=== PATIENT | female | born 1980 | race Caucasian/White ===

== ENCOUNTER 2018-06-29 13:22 | Emergency (ER) | payer OTHER, MEDICAID, SELFPAY ==
[2018-06-29 13:27] VITALS: BP 119/71; PULSE 82; RESP 20; TEMP 36.8; O2SAT 100
--- NOTE | 2018-06-29 15:14 | PC.NURSE ---
Patient states she is beginning to experience withdrawal symptoms. Pt normally takes methadone daily at a clinic in [place]. Her last dose of methadone was 06/27/18. Today pt feels anxious, has pain, nauseated, and chills. Pt states she called her clinic and they told her to come to the ED for prescription. Pt states she know the ED cannot give her Methadone but states she thinks percocet will help her symptoms and hold her over until she gets back to [place] on Wednesday
--- NOTE | 2018-06-29 15:37 | ED.RECABL ---
HPI - Recheck/Abnormal Lab/Rx <Jessica Cooper PA-C - Last Filed: 06/29/18 21:43> General Chief Complaint: Recheck/Abnormal Lab/Rx Stated Complaint: stated needs methadone Time Seen by Provider: 06/29/18 15:37 Source: patient Mode of arrival: ambulatory Limitations: no limitations History of Present Illness HPI narrative: this 37-year-old female was sent from her methadone clinic in [place] to request an emergency supply for maintenance treatment. She she states that she was supposed to go back to [place] 2 days ago and be seen for refill, however her is coming to get she and her son and is now not able to arrive until Wednesday. She states that she has been on methadone for 2 months, previously on heroin. She states that she ran out 2 days ago. She is also on clonidine and lithium for bipolar disorder and maintenance. She states that she has some ongoing aches and diarrhea, but states she has had her lithium levels checked in felt not related to this. She is not having any new symptoms today. She states that the clinic nurse told her to come to the ED to get methadone or some other medication to help avoid withdrawals. PMH/SH: Bipolar Thyroid Ca s/p thyroidectomy Heroin abuse (in remission) S/p C section SH: No tob, denies ETOH Related Data Home Medications Medication Instructions Recorded Confirmed clonazepam [Klonopin] 2 mg PO BID 06/29/18 06/29/18 levothyroxine 100 mcg PO DAILY 06/29/18 06/29/18 lithium carbonate 450 mg PO BID 06/29/18 06/29/18 methadone 90 mg PO DAILY 06/29/18 06/29/18 Allergies Allergy/AdvReac Type Severity Reaction Status Date / Time clonidine Allergy Verified 06/29/18 13:29 tizanidine [From Zanaflex] Allergy Verified 06/29/18 13:29 Review of Systems <Jessica Cooper PA-C - Last Filed: 06/29/18 21:43> Review of Systems ROS Unobtainable: All systems reviewed & are unremarkable except as noted in HPI and below PFSH <Jessica Cooper PA-C - Last Filed: 06/29/18 21:43> Social History Smoking Status: Never smoker Social History Smoking Status: Never smoker Exam <Jessica Cooper PA-C - Last Filed: 06/29/18 21:43> Narrative Exam Narrative: GENERAL: Patient sitting comfortably, in no distress (entirety of visit spent in discussion/counseling) Initial Vital Signs Initial Vital Signs: Vital Signs Temperature 98.2 F 06/29/18 13:27 Pulse Rate 82 06/29/18 13:27 Respiratory Rate 20 06/29/18 13:27 Blood Pressure 119/71 06/29/18 13:27 Pulse Oximetry 100 06/29/18 13:27 <Derrick Sands DO - Last Filed: 06/30/18 07:04> Initial Vital Signs Initial Vital Signs: Vital Signs Temperature 98.2 F 06/29/18 13:27 Pulse Rate 82 06/29/18 13:27 Respiratory Rate 20 06/29/18 13:27 Blood Pressure 119/71 06/29/18 13:27 Pulse Oximetry 100 06/29/18 13:27 Course <Jessica Cooper PA-C - Last Filed: 06/29/18 21:43> Vital Signs - 8 hr 06/29/18 16:10 Pulse Rate 77 Respiratory Rate 16 Blood Pressure [Right Arm] 109/85 Pulse Oximetry 99 <DO Ajay Coyne Last Filed: 06/30/18 07:04> Vital Signs - 8 hr 06/29/18 16:10 Pulse Rate 77 Respiratory Rate 16 Blood Pressure [Right Arm] 109/85 Pulse Oximetry 99 Discharge Plan Departure Patient Disposition: Home Clinical Impression: Encounter for medication counseling Discharge Date/Time: 06/29/18 16:18 Interventions: ED Discharge Assessment Last Done: 06/29/18 16:14 Instructions: DI for Drug or Alcohol Withdrawal Activity Restrictions/Additional Instructions: I have given you information for drug and alcohol withdrawal so you can monitor, however methadone is very long-acting and tends not to cause severe withdrawal effects like other opioids can. Please call your methadone clinic 1st thing in the morning and let them know that we cannot prescribe this or other opioid medications for maintenance therapy from the emergency room, nor can most non pain specialty providers when this is for maintenance therapy rather than acute pain. I spoke with our pharmacist here to verify this. However, in [facility], your doctor from the methadone clinic can call your pharmacy and call in an emergency supply for you , then can send the hard copy of the prescription within a few days. This is legal with controlled prescriptions in [facility] (I also confirmed with the pharmacist). Please have a pharmacy number for your clinic when you call in the morning. Prescriptions: No Action lithium carbonate 300 mg Tablet Extended Release 450 mg PO BID RF: 0 methadone 40 mg Tablet,Soluble 90 mg PO DAILY RF: 0 clonazepam [Klonopin] 2 mg Tablet 2 mg PO BID RF: 0 levothyroxine 100 mcg Capsule 100 mcg PO DAILY RF: 0 Referrals: [facility], Methadone Clinic [Other] <Derrick Sands DO - Last Filed: 06/30/18 07:04> [facility] ED Attending Almita Attestation: I was available for consultation during this patient's emergency department encounter
[2018-06-29 16:10] VITALS: BP 109/85; PULSE 77; RESP 16; O2SAT 99
== END 2018-06-29 16:18 | disposition home or self-care (01) ==
PROVIDERS: Emergency Provider Internal Medicine
DX: Z71.89 Other specified counseling (principal)
CPT/HCPCS: 99282

== ENCOUNTER 2018-08-18 17:18 | Emergency (ER) | payer OTHER, MEDICAID, SELFPAY ==
[2018-08-18 17:28] VITALS: BP 99/66; PULSE 78; RESP 16; O2SAT 98; BMI 22.4
[2018-08-18 17:49] LABS: Pregnancy Test Urine Negative (Negative)
--- NOTE | 2018-08-18 18:23 | ED.ABDPAIN ---
HPI - Abdominal Pain General Chief Complaint: Abdominal Pain Stated Complaint: ABD PAIN Time Seen by Provider: 08/18/18 18:23 Source: patient Mode of arrival: ambulatory Limitations: no limitations History of Present Illness HPI narrative: 37-year-old female here for evaluation of right lower quadrant/right adnexa pain. States it has been worsening for the past couple days. No change with urination or bowel movement. Has had some nausea but no vomiting. has not tried anything for symptoms prior to arrival Related Data Home Medications Medication Instructions Recorded Confirmed clonazepam [Klonopin] 2 mg PO BID 06/29/18 06/29/18 levothyroxine 100 mcg PO DAILY 06/29/18 06/29/18 lithium carbonate 450 mg PO BID 06/29/18 06/29/18 methadone 90 mg PO DAILY 06/29/18 06/29/18 Allergies Allergy/AdvReac Type Severity Reaction Status Date / Time clonidine Allergy Verified 08/18/18 17:28 tizanidine [From Zanaflex] Allergy Verified 08/18/18 17:28 Review of Systems Constitutional Denies headache(s) ENT Ears, Nose, Mouth, and Throat: Denies headache(s) Cardiovascular Denies chest pain and Denies dyspnea Respiratory Denies dyspnea Gastrointestinal Gastrointestinal: Reports abdominal pain, Denies change in stool character, Reports nausea and Denies vomiting Genitourinary Denies dysuria and Denies vaginal discharge Musculoskeletal Denies myalgias and Denies arthralgias Integumentary/Breasts Denies rash Neurologic Denies headache(s) Hematologic/Lymphatic Denies easy bleeding and Denies easy bruising Allergic/Immunologic Denies urticaria [facility] Medical History Hypothyroid (Acute) Social History Smoking Status: Never smoker Social History Smoking Status: Never smoker Exam Initial Vital Signs Initial Vital Signs: Vital Signs Pulse Rate 78 08/18/18 17:28 Respiratory Rate 16 08/18/18 17:28 Blood Pressure 99/66 08/18/18 17:28 Pulse Oximetry 98 08/18/18 17:28 Const General: cooperative, comfortable, well developed, well groomed and No acute distress Orientation: alert, awake and oriented x3 HENMT Head: normal to inspection and normocephalic Resp Effort & Inspection: normal respiratory effort Auscultation: clear to auscultation bilaterally Cardio Rate: regular rate Rhythm: regular rhythm GI Inspection: non-distended Palpation: soft, No firm and tender (Right lower quadrant/right adnexa) Back/Spine/Pelvis Back: No CVA tenderness Skin Lesions: no lesions Rashes: no rashes Neuro General: alert, awake and oriented x3 Cognition: normal cognition Speech: speech normal Extrem General: normal to inspection and capillary refill normal Course Orders Ordered: ED Orders 08/18/18 17:34 Test Urine Stat Urine Microscopic Stat 08/18/18 18:32 CT abdomen pelvis w con Stat 08/18/18 18:38 Complete Blood Count AUTO DIFF Stat Comprehensive Metabolic Panel Stat Lipase Stat 08/18/18 20:21 US pelvic complete Stat Discontinued Medications Sodium Chloride (Normal Saline 0.9%) 1,000 mls @ 150 mls/hr IV CONT MARC Last Admin: 08/18/18 18:43 Dose: Not Given Sodium Chloride (Normal Saline 0.9%) 1,000 mls @ 1,000 mls/hr IV BOLUS ONE Stop: 08/18/18 19:30 Last Infusion: 08/18/18 20:19 Dose: 0 mls/hr Admin: 08/18/18 18:48 Dose: 1,000 mls/hr Morphine Sulfate (Morphine) 4 mg IV NOW ONE Stop: 08/18/18 18:32 Last Admin: 08/18/18 18:48 Dose: 4 mg Morphine Sulfate (Morphine) 4 mg IV NOW ONE Stop: 08/18/18 20:22 Last Admin: 08/18/18 20:29 Dose: 4 mg Ondansetron HCl (Zofran) 4 mg IV NOW ONE Stop: 08/18/18 18:32 Last Admin: 08/18/18 18:48 Dose: 4 mg Vital Signs - 8 hr 08/18/18 17:28 08/18/18 19:15 08/18/18 21:17 Pulse Rate 78 74 65 Respiratory Rate 16 12 16 Blood Pressure 99/66 Blood Pressure [Right Arm] 107/68 111/78 Pulse Oximetry 98 98 96 MDM - Abdominal Pain Lab Data Attestation: I reviewed the patient's lab results. Result diagrams: 08/18/18 18:38 08/18/18 18:38 Lab Results 08/18/18 08/18/18 08/18/18 Range/Units 17:34 17:34 18:38 WBC 8.6 (4.5-11.0) X10^3/uL RBC 4.02 (4.0-5.2) X10^6/uL Hgb 11.7 L (12.0-16.0) g/dL Hct 36.2 (36-46) % MCV 89.9 (80-100) fL MCH 29.0 (26-34) PG MCHC 32.2 (30-36) % RDW 14.5 (11.6-14.8) % Plt Count 288 (150-400) X10^3/uL Neut % (Auto) 59.3 (50-75) % Lymph % (Auto) 31.9 (25-40) % [place] % (Auto) 4.5 (3-14) % Eos % (Auto) 3.9 (2-4) % Baso % (Auto) 0.4 (0-2) % Neut # (Auto) 5100 (4031-4099) /uL Lymph # (Auto) 2700 (5755-2411) /uL [place] # (Auto) 400 (0-900) /uL Eos # (Auto) 300 (0-450) /uL Baso # (Auto) 0 (0-100) /uL Sodium (137-145) mmol/L Potassium (3.4-5.1) mmol/L Chloride (98-107) mmol/L Carbon Dioxide (22-32) mmol/L BUN (7-17) mg/dL Creatinine (0.52-1.04) mg/dL Estimated GFR (>60) mL/min BUN/Creatinine Ratio (6-22) Glucose (70-100) mg/dL Calcium (8.4-10.2) mg/dL Total Bilirubin (0.2-1.3) mg/dL AST (14-36) IU/L ALT (9-52) IU/L Alkaline Phosphatase (38-126) U/L Total Protein (6.3-8.2) g/dL Albumin (3.5-5.0) g/dL Globulin (1.7-4.1) g/dL Albumin/Globulin Ratio (1.0-2.8) Lipase (23-300) U/L Urine RBC None seen (0-5/HPF) Urine WBC 1-5/hpf (0-5/HPF) Ur Squamous Epith Cells 1-5 /hpf (0-5/HPF) Calcium Oxalate Crystal Occasional H Urine Bacteria Few (2-10) H (None) Ur Culture Indicated? Cult not indicated Urine Test Negative (Negative) 08/18/18 Range/Units 18:38 WBC (4.5-11.0) X10^3/uL RBC (4.0-5.2) X10^6/uL Hgb (12.0-16.0) g/dL Hct (36-46) % MCV (80-100) fL MCH (26-34) PG MCHC (30-36) % RDW (11.6-14.8) % Plt Count (150-400) X10^3/uL Neut % (Auto) (50-75) % Lymph % (Auto) (25-40) % [place] % (Auto) (3-14) % Eos % (Auto) (2-4) % Baso % (Auto) (0-2) % Neut # (Auto) (3716-8881) /uL Lymph # (Auto) (8650-0279) /uL Carolina # (Auto) (0-900) /uL Eos # (Auto) (0-450) /uL Baso # (Auto) (0-100) /uL Sodium 140 (137-145) mmol/L Potassium 4.0 (3.4-5.1) mmol/L Chloride 99 (98-107) mmol/L Carbon Dioxide 31 (22-32) mmol/L BUN 12 (7-17) mg/dL Creatinine 0.70 (0.52-1.04) mg/dL Estimated GFR > 60.0 (>60) mL/min BUN/Creatinine Ratio 17.1 (6-22) Glucose 95 (70-100) mg/dL Calcium 9.6 (8.4-10.2) mg/dL Total Bilirubin 0.3 (0.2-1.3) mg/dL AST 29 (14-36) IU/L ALT 67 H (9-52) IU/L Alkaline Phosphatase 87 (38-126) U/L Total Protein 8.2 (6.3-8.2) g/dL Albumin 4.7 (3.5-5.0) g/dL Globulin 3.5 (1.7-4.1) g/dL Albumin/Globulin Ratio 1.3 (1.0-2.8) Lipase 47 (23-300) U/L Urine RBC (0-5/HPF) Urine WBC (0-5/HPF) Ur Squamous Epith Cells (0-5/HPF) Calcium Oxalate Crystal Urine Bacteria (None) Ur Culture Indicated? Urine Test (Negative) Point of care testing: Urine Dip Bedside Urine Glucose Negative Bedside Urine Bilirubin + 1 Bedside Urine Ketone - Negative Urine Specific [place] 1.030 Bedside Urine Occult Blood - Negative Bedside Urine pH 5.5 Bedside Urine Protein +/- 15 Bedside Urine Urobilinogen +/- 1mg Bedside Urine Nitrite - Negative Bedside Urine Leukocytes - Negative Esterase Imaging Data CT scan - abdomen: Radiologist's impression: CT Scan Report Signed Patient: Elana Herring WMR#: [id number] : 1980Acct:[id number] Age/Sex: 37 / FDate of Service: 08/18/18 Loc: ED Accession Number: [id number] Procedure: CT abdomen pelvis w con Ordering Provider: Derrick Sands D.O. PROCEDURE: CT ABDOMEN PELVIS W CON INDICATIONS: Right lower quadrant abdominal pain TECHNIQUE: After the administration of intravenous contrast, 5 mm thick sections acquired from the diaphragm to the symphysis. 5 mm coronal and sagittal reformats were acquired. For radiation dose reduction, the following was used: automated exposure control, adjustment of mA and/or kV according to patient size. COMPARISON: None. FINDINGS: Image quality: Excellent. ABDOMEN: Lung bases: Lung bases demonstrate mild respiratory motion but also minimal alveolar opacity centrally and medially in both lower lobes and right middle lobe.. Solid organs: Liver is enlarged consistent with a Jeremy's lobe morphology. Gallbladder is decompressed around a stone and demonstrates slight wall thickening.. Biliary system is non dilated. Pancreas enhances normally. Spleen is normal in size and enhancement. No adrenal nodules. Kidneys demonstrate normal size and enhancement, without hydronephrosis. Peritoneum and bowel: Mildly increased quantity of solid stool in the proximal colon. Decompressed distal colon. Normal small bowel loops and stomach. The appendix is retrocecal, horizontally oriented, and the visible portion is normal. There is a trace amount of fluid anteriorly in the right lower quadrant, nonspecific. Nodes and vessels: No retroperitoneal or mesenteric adenopathy by size criteria. Aorta and inferior vena cava are normal in size. Miscellaneous: No ventral hernias. PELVIS: Genitourinary: Urinary bladder demonstrates circumferential wall thickening, but only partial distention. The ovaries are not well seen. The uterus appears normal. Miscellaneous: No inguinal hernias or adenopathy. Bones: No suspicious bony lesions. No vertebral body compression fractures. Bilateral L5 pars defects and trace L5 on S1 anterolisthesis. IMPRESSION: 1. Visible portions the appendix appear normal. 2. Nonspecific trace amount of free fluid in the right lower quadrant anteriorly. 3. Nonvisualization of the ovaries. 4. Cholelithiasis in a decompressed gallbladder. Dictated by: Ely Garner M.D. on 08/18/2018 at 19:49 Approved by: Ely Garner M.D. on 08/18/2018 at 19:56 US - abdomen: Radiologist's impression: [place] [address] Ultrasound Report Signed Patient: Elana Herring WMR#: [id number] : 1980Acct:[id number] Age/Sex: 37 / FDate of Service: 08/18/18 Loc: ED Accession Number: [id number] Procedure: US pelvic complete Ordering Provider: Derrick Sands D.O. PROCEDURE: US PELVIC COMPLETE INDICATIONS: RIGHT LOWER QUADRANT AND ABDOMINAL PAIN, ?OVARY PATHOLOGY TECHNIQUE: Real-time scanning was performed of the pelvic organs, with image documentation. Additional endovaginal scanning was necessary due to incomplete visualization of the adnexal and endometrial structures by transabdominal scanning. COMPARISON: None. FINDINGS: Transabdominal scanning: Limited scanning through the kidneys shows no hydronephrosis. No pathologic free abdominal or pelvic fluid. The anteverted uterus demonstrates normal contours. The echotexture is heterogeneous. Endovaginal scanning: Uterus: Uterus is normal in size at 8.8 x 4.2 x 6.3 cm. The endometrium measures less than 2 mm in combined thickness. Occasional punctate echogenic foci within the myometrium diffusely and in a linear fashion transversely along anterior lower uterine segmen. Normal vascularity. Ovaries: The right ovary measures 4.4 x 2.7 x 1.7 cm and contains multiple subcentimeter follicles. The left ovary measures 4.0 x 2.3 x 2.8 cm and demonstrates a dominant follicle measuring 2.1 cm. A small amount of simple cul-de-sac fluid is visible. IMPRESSION: 1. Normal uterus with calcified scar. 2. Normal appearance to both ovaries and likely physiologic amount of cul-de-sac fluid. Dictated by: Ely Garner M.D. on 08/18/2018 at 21:46 Approved by: Ely Garner M.D. on 08/18/2018 at 21:49 [facility] Narrative Medical decision making narrative: Her CT scan and ultrasound were negative for acute pathology. Labs are unremarkable. No indication for antibiotics. No indication for emergent surgical referral. Unsure the exact etiology of her symptoms but does not appear to be an emergent condition. I discussed all this with the patient. She is given return precautions and follow-up instructions. She expressed understanding and agreement with plan. Discharge Plan Departure Patient Disposition: Home Clinical Impression: Abdominal pain Qualifiers: Abdominal location: right lower quadrant Qualified Code(s): R10.31 - Right lower quadrant pain Discharge Date/Time: 08/18/18 22:20 Interventions: ED Discharge Assessment Last Done: 08/18/18 22:37 Instructions: DI for Abdominal Pain-Adult Activity Restrictions/Additional Instructions: Call your primary care doctor for follow-up. Return to the emergency department for any new or worsening symptoms Prescriptions: No Action lithium carbonate 300 mg Tablet Extended Release 450 mg PO BID RF: 0 methadone 40 mg Tablet,Soluble 90 mg PO DAILY RF: 0 clonazepam [Klonopin] 2 mg Tablet 2 mg PO BID RF: 0 levothyroxine 100 mcg Capsule 100 mcg PO DAILY RF: 0
--- NOTE | 2018-08-18 18:32 | DI.CT.S_ITS ---
PROCEDURE: CT ABDOMEN PELVIS W CON INDICATIONS: Right lower quadrant abdominal pain TECHNIQUE: After the administration of intravenous contrast, 5 mm thick sections acquired from the diaphragm to the symphysis. 5 mm coronal and sagittal reformats were acquired. For radiation dose reduction, the following was used: automated exposure control, adjustment of mA and/or kV according to patient size. COMPARISON: None. FINDINGS: Image quality: Excellent. ABDOMEN: Lung bases: Lung bases demonstrate mild respiratory motion but also minimal alveolar opacity centrally and medially in both lower lobes and right middle lobe.. Solid organs: Liver is enlarged consistent with a Jeremy's lobe morphology. Gallbladder is decompressed around a stone and demonstrates slight wall thickening.. Biliary system is non dilated. Pancreas enhances normally. Spleen is normal in size and enhancement. No adrenal nodules. Kidneys demonstrate normal size and enhancement, without hydronephrosis. Peritoneum and bowel: Mildly increased quantity of solid stool in the proximal colon. Decompressed distal colon. Normal small bowel loops and stomach. The appendix is retrocecal, horizontally oriented, and the visible portion is normal. There is a trace amount of fluid anteriorly in the right lower quadrant, nonspecific. Nodes and vessels: No retroperitoneal or mesenteric adenopathy by size criteria. Aorta and inferior vena cava are normal in size. Miscellaneous: No ventral hernias. PELVIS: Genitourinary: Urinary bladder demonstrates circumferential wall thickening, but only partial distention. The ovaries are not well seen. The uterus appears normal. Miscellaneous: No inguinal hernias or adenopathy. Bones: No suspicious bony lesions. No vertebral body compression fractures. Bilateral L5 pars defects and trace L5 on S1 anterolisthesis. IMPRESSION: 1. Visible portions the appendix appear normal. 2. Nonspecific trace amount of free fluid in the right lower quadrant anteriorly. 3. Nonvisualization of the ovaries. 4. Cholelithiasis in a decompressed gallbladder. Dictated by: Ely Garner M.D. on 08/18/2018 at 19:49 Approved by: Ely Garner M.D. on 08/18/2018 at 19:56
[2018-08-18] MEDS: SODIUM CHLORIDE 0.9% 1,000 ML 1000 ML IV (18:48)
[2018-08-18] MEDS: MORPHINE 4 MG/ML INJ IV ×2 (18:48→20:29)
[2018-08-18] MEDS: ONDANSETRON 4 MG/2 ML INJ IV (18:48)
[2018-08-18 18:56] LABS: Add Manual Diff / Slide Review NO; Basophils Absolute Auto 0 /uL (0-100); Basophils Percent Auto 0.4 % (0-2); Eosinophils Absolute Auto 300 /uL (0-450); Eosinophils Percent Auto 3.9 % (2-4); Hematocrit 36.2 % (36-46); Hemoglobin 11.7 g/dL (12.0-16.0); Lymphocytes Absolute Auto 2700 /uL (1100-4500); Lymphocytes Percent Auto 31.9 % (25-40); Mean Corpuscular HGB Conc 32.2 % (30-36); Mean Corpuscular Volume 89.9 fL (80-100); Monocytes Absolute Auto 400 /uL (0-900); Monocytes Percent Auto 4.5 % (3-14); Neutrophils Absolute Auto 5100 /uL (1500-7000); Neutrophils Percent Auto 59.3 % (50-75); Platelet Count 288 X10^3/uL (150-400); Red Blood Cell Count 4.02 X10^6/uL (4.0-5.2); Red Cell Distribution Width 14.5 % (11.6-14.8); White Blood Cell Count 8.6 X10^3/uL (4.5-11.0)
[2018-08-18 18:59] LABS: Alanine Aminotransferase 67 IU/L (9-52); Albumin 4.7 g/dL (3.5-5.0); Albumin Globulin Ratio 1.3 (1.0-2.8); Alkaline Phosphatase 87 U/L (38-126); Aspartate Aminotransferase 29 IU/L (14-36); BUN Creatinine Ratio 17.1 (6-22); Bilirubin Total 0.3 mg/dL (0.2-1.3); Blood Urea Nitrogen 12 mg/dL (7-17); Calcium 9.6 mg/dL (8.4-10.2); Carbon Dioxide 31 mmol/L (22-32); Chloride 99 mmol/L (98-107); Estimated Glomerular Filt Rate > 60.0 mL/min (>60); Globulin 3.5 g/dL (1.7-4.1); Glucose 95 mg/dL (70-100); HEMOLYSIS < 15 (0-50); Lipase 47 U/L (23-300); Sodium 140 mmol/L (137-145); Total Protein 8.2 g/dL (6.3-8.2)
[2018-08-18 19:15] VITALS: BP 107/68; PULSE 74; RESP 12; O2SAT 98
[2018-08-18 19:21] LABS: RBC Urine None Seen (0-5/HPF)
[2018-08-18 19:34] LABS: Squamous Epithelial Cell Urine 1-5 /HPF (0-5/HPF); WBC Urine 1-5/HPF (0-5/HPF)
[2018-08-18 19:35] LABS: Bacteria Urine Few (2-10); Calcium Oxalate Crystals Urine Occasional; Culture Indicated Urine Cult Not Indicated
--- NOTE | 2018-08-18 20:21 | DI.US.S_ITS ---
PROCEDURE: US PELVIC COMPLETE INDICATIONS: RIGHT LOWER QUADRANT AND ABDOMINAL PAIN, ?OVARY PATHOLOGY TECHNIQUE: Real-time scanning was performed of the pelvic organs, with image documentation. Additional endovaginal scanning was necessary due to incomplete visualization of the adnexal and endometrial structures by transabdominal scanning. COMPARISON: None. FINDINGS: Transabdominal scanning: Limited scanning through the kidneys shows no hydronephrosis. No pathologic free abdominal or pelvic fluid. The anteverted uterus demonstrates normal contours. The echotexture is heterogeneous. Endovaginal scanning: Uterus: Uterus is normal in size at 8.8 x 4.2 x 6.3 cm. The endometrium measures less than 2 mm in combined thickness. Occasional punctate echogenic foci within the myometrium diffusely and in a linear fashion transversely along anterior lower uterine segmen. Normal vascularity. Ovaries: The right ovary measures 4.4 x 2.7 x 1.7 cm and contains multiple subcentimeter follicles. The left ovary measures 4.0 x 2.3 x 2.8 cm and demonstrates a dominant follicle measuring 2.1 cm. A small amount of simple cul-de-sac fluid is visible. IMPRESSION: 1. Normal uterus with calcified scar. 2. Normal appearance to both ovaries and likely physiologic amount of cul-de-sac fluid. Dictated by: Ely Garner M.D. on 08/18/2018 at 21:46 Approved by: Ely Garner M.D. on 08/18/2018 at 21:49
[2018-08-18 21:17] VITALS: BP 111/78; PULSE 65; RESP 16; O2SAT 96
== END 2018-08-18 22:20 | disposition home or self-care (01) ==
PROVIDERS: Emergency Medicine; Emergency Provider Emergency Medicine
DX: R10.31 Right lower quadrant pain (principal); R11.0 Nausea; R10.2 Pelvic and perineal pain
CPT/HCPCS: 36591; 74177; 76830; 76856; 80053; 81003; 81015; 81025; 83690; 85025; 96361; 96374; 96375; 96376; 99283; 99284; J2270; J2405; Q9967

== ENCOUNTER 2021-09-25 16:24 | Emergency (ER) | payer MEDICAID, SELFPAY ==
[2021-09-25 16:38] VITALS: BP 121/67; PULSE 62; RESP 14; TEMP 36.2; O2SAT 100; BMI 24.3
--- NOTE | 2021-09-25 19:29 | PC.NURSE ---
Called for pt in waiting room with not response at 1903
== END 2021-09-25 19:29 | disposition left against medical advice (07) ==
PROVIDERS: Emergency Provider Emergency Medicine
CPT/HCPCS: 99281

== ENCOUNTER 2022-02-05 11:14 | Emergency (ER) | payer OTHER, MEDICAID, SELFPAY ==
[2022-02-05 11:39] VITALS: BP 113/77; PULSE 59; RESP 14; TEMP 36.2; O2SAT 100; BMI 22.9
--- NOTE | 2022-02-05 13:02 | ED.WEAKNESS ---
HPI - Weakness <Alisha Workman PA-C - Last Filed: 02/05/22 17:21> General Chief complaint: Weakness Stated complaint: severe dehydration sent by [facility] Time Seen by Provider: 02/05/22 12:10 Source: patient Mode of arrival: Wheelchair History of Present Illness HPI Narrative: The patient is 41 years old unfortunate female with past medical history significant for longstanding (at least 15 years) drug addiction, hypothyroidism status post total thyroidectomy due to history of thyroid cancer, ongoing lumbar pain, tingling numbness in the right lower extremity has been maintained on methadone program. She has been frequently missing her doses, is evident from her recent visit to [facility] Emergency Department discharge note, and as a result, experiencing bouts of nausea vomiting weakness. She received just yesterday fluids at the ED, and supposed to be seen today at the [facility], and get her doses of methadone adjusted. She could not keep that visit due to ongoing issues with weakness nausea and vomiting. The fact that she resides with her mother at remote location, and does not have her transportation does not help. matters. Patient admitted that she feels weak and dizzy. She barely can get up. She also complains of lower extremity weakness, and been a drug addict for long time, she knows these are symptoms of her dehydration. She also could not keep down much since last night. She mentions she did feel better after hydration and antiemetics given to her and [facility] ED. she was provided antinausea medication, and tried to use it, however throw up regardless. She specifically denies fever chills. Related Data Home Medications Medication Instructions Recorded Confirmed clonazepam 2 mg tablet (Klonopin) 2 mg PO BID 06/29/18 06/29/18 levothyroxine 100 mcg capsule 100 mcg PO DAILY 06/29/18 06/29/18 lithium carbonate 300 mg 450 mg PO BID 06/29/18 06/29/18 tablet,extended release methadone 40 mg soluble tablet 90 mg PO DAILY 06/29/18 06/29/18 Allergies Allergy/AdvReac Type Severity Reaction Status Date / Time clonidine Allergy Verified 02/05/22 11:41 codeine Allergy Verified 02/05/22 11:41 ibuprofen Allergy Verified 02/05/22 11:41 tizanidine [From Zanaflex] Allergy Verified 02/05/22 11:41 Review of Systems <Alisha Workman PA-C - Last Filed: 02/05/22 17:21> Review of Systems Narrative: GENERAL: Denies chills, admits to fatigue, malaise, fever, sweats. HEENT: Denies sinus pain, ear pain, sore throat, difficulty swallowing, dizziness. RESPIRATORY: Denies dyspnea, cough, wheezing, hemoptysis, sputum. CARDIOVASCULAR: Denies chest pain, palpitations, orthopnea, edema, GASTROINTESTINAL: Denies nausea, vomiting, abdominal pain, diarrhea, constipation, melena. : Denies dysuria, frequency, incontinence, hematuria, urinary retention. MUSCULOSKELETAL: denies weakness, joint pain, or bony pain SKIN: Denies rash, skin lesions, or other NEUROLOGIC: Denies weakness, headache, numbness, change in speech, confusion, seizures, incoordination. PSYCHIATRIC: History of bipolar disease she has been taking lithium bicarbonate states she is compliant history of opiates abuse, due to chronic pain for last 15 16 years.. Patient History <Alisha Workman PA-C - Last Filed: 02/05/22 17:21> Medical History Hypothyroid Social History (Updated 02/05/22 @ 14:41 by Alisha Workman PA-C) Smoking Status: Former smoker substance use type: opiates and painkillers Smoking Status: Former smoker alcohol intake frequency: holidays/special occasions only Substance Use Type: does not use and former substance user Exam <Alisha Workman PA-C - Last Filed: 02/05/22 17:21> Narrative Exam Narrative: GENERAL: 41 year old patient appears older stated age. Well-developed patient, in mild emotional distress due to feeling poorly. HEAD: Atraumatic. Normocephalic. EYES: Pupils equal round and reactive. Extraocular motions intact. No scleral icterus. No injection or drainage. ENT: Nose without bleeding, purulent drainage. There is a nasal scar noted Throat without erythema, tonsillar hypertrophy or exudate. Airway patent. NECK: Trachea midline. Non tender scar status post total thyroidectomy CARDIOVASCULAR: Regular rate and rhythm without murmurs, gallops, or rubs. RESPIRATORY: Clear to auscultation. Breath sounds equal bilaterally. No wheezes, rales, or rhonchi. GASTROINTESTINAL: Abdomen soft, non-tender, nondistended. EXTREMITIES: No edema or joint tenderness. BACK: Nontender without deformity or crepitance. No flank tenderness. NEURO: AOx3. Reflexes are normoactive upper lower extremities. Light touch lower extremities intact. SKIN: No rash or erythema of visible areas noted poor turgor, no rashes Initial Vital Signs Initial Vital Signs: Vital Signs Temperature 97.1 F L 02/05/22 11:39 Pulse Rate 59 L 02/05/22 11:39 Respiratory Rate 14 02/05/22 11:39 Blood Pressure 113/77 02/05/22 11:39 Pulse Oximetry 100 02/05/22 11:39 Oxygen Delivery Method 02/05/22 11:39 <Derrick Sands DO - Last Filed: 02/05/22 17:27> Initial Vital Signs Initial Vital Signs: Vital Signs Temperature 97.1 F L 02/05/22 11:39 Pulse Rate 59 L 02/05/22 11:39 Respiratory Rate 14 02/05/22 11:39 Blood Pressure 113/77 02/05/22 11:39 Pulse Oximetry 100 02/05/22 11:39 Oxygen Delivery Method 02/05/22 11:39 Course <Alisha Workman PA-C - Last Filed: 02/05/22 17:21> Course Course Narrative: Patient was observed in emergency department. She received 1 L normal saline, with Zofran, dexamethasone, famotidine. She was reassessed and felt much better. Mrs. Singer considered to be stable to be discharged Orders Ordered: ED Orders 02/05/22 12:52 Consult to [facility] - Tobacco Dipper Stat 02/05/22 13:10 Comprehensive Metabolic Panel Stat Thyroid Stimulating Hormone Stat Discontinued Medications Dexamethasone (Dexamethasone 10 Mg/Ml Vial) 10 mg IV NOW ONE Stop: 02/05/22 13:08 Last Admin: 02/05/22 13:17 Dose: 10 mg Documented By: RL Famotidine (Famotidine 20 Mg/2 Ml Vial) 20 mg IV NOW MARC Last Admin: 02/05/22 13:17 Dose: 20 mg Documented By: RL Sodium Chloride (Normal Saline 0.9%) 1,000 mls @ 1,000 mls/hr IV BOLUS ONE Stop: 02/05/22 14:02 Last Infusion: 02/05/22 14:22 Dose: 0 mls/hr Documented By: Admin: 02/05/22 13:16 Dose: 1,000 mls/hr Documented By: OUSMANE Ondansetron HCl (Ondansetron 4 Mg/2 Ml Inj) 4 mg IV NOW ONE Stop: 02/05/22 13:04 Last Admin: 02/05/22 13:17 Dose: 4 mg Documented By: OUSMANE Vital Signs Vital signs: Vital Signs - 8 hr 02/05/22 11:39 Temperature 97.1 F L Pulse Rate 59 L Respiratory Rate 14 Blood Pressure 113/77 Pulse Oximetry 100 Oxygen Delivery Method Room Air <Derrick Sands DO - Last Filed: 02/05/22 17:27> Orders Ordered: ED Orders 02/05/22 12:52 Consult to [facility] - Tobacco Dipper Stat 02/05/22 13:10 Comprehensive Metabolic Panel Stat Thyroid Stimulating Hormone Stat Discontinued Medications Dexamethasone (Dexamethasone 10 Mg/Ml Vial) 10 mg IV NOW ONE Stop: 02/05/22 13:08 Last Admin: 02/05/22 13:17 Dose: 10 mg Documented By: OUSMANE Famotidine (Famotidine 20 Mg/2 Ml Vial) 20 mg IV NOW MARC Last Admin: 02/05/22 13:17 Dose: 20 mg Documented By: OUSMANE Sodium Chloride (Normal Saline 0.9%) 1,000 mls @ 1,000 mls/hr IV BOLUS ONE Stop: 02/05/22 14:02 Last Infusion: 02/05/22 14:22 Dose: 0 mls/hr Documented By: Admin: 02/05/22 13:16 Dose: 1,000 mls/hr Documented By: OUSMANE Ondansetron HCl (Ondansetron 4 Mg/2 Ml Inj) 4 mg IV NOW ONE Stop: 02/05/22 13:04 Last Admin: 02/05/22 13:17 Dose: 4 mg Documented By: OUSMANE Vital Signs Vital signs: Vital Signs - 8 hr 02/05/22 11:39 Temperature 97.1 F L Pulse Rate 59 L Respiratory Rate 14 Blood Pressure 113/77 Pulse Oximetry 100 Oxygen Delivery Method Room Air MDM - Weakness <Alisha Workman PA-C - Last Filed: 02/05/22 17:21> Differential Diagnosis Differential diagnosis: Likely dehydration and other (opioid withdrawal symptoms, nausea and vomiting) Lab Data Lab results narrative: Labs reviewed, Result diagrams: 02/05/22 13:10 Labs: Lab Results 02/05/22 02/05/22 Range/Units 13:10 13:10 Sodium 134 L (137-145) mmol/L Potassium 3.7 (3.4-5.1) mmol/L Chloride 95 L (98-107) mmol/L Carbon Dioxide 30 (22-32) mmol/L BUN 11 (7-17) mg/dL Creatinine 0.95 (0.52-1.04) mg/dL Estimated GFR > 60 (>60) mL/min BUN/Creatinine Ratio 11.6 (6-22) Glucose 83 (70-100) mg/dL Calcium 9.5 (8.4-10.2) mg/dL Total Bilirubin 0.5 (0.2-1.3) mg/dL AST 26 (14-36) IU/L ALT 17 (<35) IU/L Alkaline Phosphatase 52 (38-126) U/L Total Protein 7.1 (6.3-8.2) g/dL Albumin 4.1 (3.5-5.0) g/dL Globulin 3.0 (1.7-4.1) g/dL Albumin/Globulin Ratio 1.4 (1.0-2.8) TSH 103 H (0.47-4.68) uIU/mL ECG Data Prior ECG tracings: available for review (The EKG was performed at [facility] ED yesterday, demonstrating sinus rhythm with nonspecific T-wave abnormalities, diffuse leads) MDM Narrative Medical decision making narrative: Patient is 41 years old female who has history of drug addiction, she is currently attending methadone clinic, she missed several doses of her methadone. Miss Singer was seen in the emergency department just yesterday, a different facility, received fluids, antiemetics, her symptoms however persist. She was seen today, received IV fluids, antiemetics, and she is planning to continue to follow with her addiction medicine doctors, and [facility] facility where she is trying to address her multiple socioeconomic issues, During observation in the emergency department, patient felt better upon receiving fluids, and stable for discharge. <Derrick Sands DO - Last Filed: 02/05/22 17:27> Lab Data Labs: Lab Results 02/05/22 02/05/22 Range/Units 13:10 13:10 Sodium 134 L (137-145) mmol/L Potassium 3.7 (3.4-5.1) mmol/L Chloride 95 L (98-107) mmol/L Carbon Dioxide 30 (22-32) mmol/L BUN 11 (7-17) mg/dL Creatinine 0.95 (0.52-1.04) mg/dL Estimated GFR > 60 (>60) mL/min BUN/Creatinine Ratio 11.6 (6-22) Glucose 83 (70-100) mg/dL Calcium 9.5 (8.4-10.2) mg/dL Total Bilirubin 0.5 (0.2-1.3) mg/dL AST 26 (14-36) IU/L ALT 17 (<35) IU/L Alkaline Phosphatase 52 (38-126) U/L Total Protein 7.1 (6.3-8.2) g/dL Albumin 4.1 (3.5-5.0) g/dL Globulin 3.0 (1.7-4.1) g/dL Albumin/Globulin Ratio 1.4 (1.0-2.8) TSH 103 H (0.47-4.68) uIU/mL Discharge Plan Departure Patient Disposition: Home Clinical Impression: Dehydration, Withdrawal from opioids, Nausea & vomiting Instructions: Opioid Use Disorder, DI for Dehydration -- Adult, DI for Nausea -- Adult Activity Restrictions/Additional Instructions: *You have been diagnosed with dehydration, nausea vomiting stemming from medication withdrawal *What to do: *Please continue to take your regular medications as directed. No new medications given at this ER visit *Please follow up with your primary care provider in 2-3 days, call for an appointment. Let them know you were seen in the Emergency Department and that we ask that you be seen in follow up. We will electronically transmit a record of today's note if your PCP is in our system *If you do not have a primary care provider Resource line at [phone]. They will ask some questions about your medical history and help get you set up with a doctor in the community. *Return to Emergency Department if you should have any new, worsening or concerning symptoms, such as fever greater than 101 F, shaking chills, worsening pain, nausea and vomiting other bothersome symptoms We also recommend you contact your health program analyst at [facility], regarding opioid addiction questions, or you can contact licensed nuclear control room operator at [facility] phone number is [phone] Prescriptions: No Action lithium carbonate 300 mg Tablet Extended Release 450 mg PO BID methadone 40 mg Tablet,Soluble 90 mg PO DAILY clonazepam [Klonopin] 2 mg Tablet 2 mg PO BID levothyroxine 100 mcg Capsule 100 mcg PO DAILY Visit Report Forms: Patient Portal/API <Derrick Sands, DO - Last Filed: 02/05/22 17:27> Cosign ED Attending Cosignature Attestation: Dr Sands Co-Sign Statement: I was available for consultation during this patient's emergency department visit. This chart is signed by myself for administrative purposes only. I did not have direct contact with this patient during this visit. They were seen independently by the APC.
[2022-02-05] MEDS: SODIUM CHLORIDE 0.9% 1,000 ML 1000 ML IV (13:16)
[2022-02-05] MEDS: FAMOTIDINE 20 MG/2 ML VIAL IV (13:17)
[2022-02-05] MEDS: DEXAMETHASONE 10 MG/ML VIAL IV (13:17)
[2022-02-05] MEDS: ONDANSETRON 4 MG/2 ML INJ IV (13:17)
[2022-02-05 13:49] LABS: Alanine Aminotransferase 17 IU/L (<35); Albumin 4.1 g/dL (3.5-5.0); Albumin Globulin Ratio 1.4 (1.0-2.8); Alkaline Phosphatase 52 U/L (38-126); Aspartate Aminotransferase 26 IU/L (14-36); BUN Creatinine Ratio 11.6 (6-22); Bilirubin Total 0.5 mg/dL (0.2-1.3); Blood Urea Nitrogen 11 mg/dL (7-17); Calcium 9.5 mg/dL (8.4-10.2); Carbon Dioxide 30 mmol/L (22-32); Chloride 95 mmol/L (98-107); Estimated Glomerular Filt Rate > 60 mL/min (>60); Glucose 83 mg/dL (70-100); HEMOLYSIS < 15 (0-50); Potassium 3.7 mmol/L (3.4-5.1); Sodium 134 mmol/L (137-145); Total Protein 7.1 g/dL (6.3-8.2)
[2022-02-05 15:05] LABS: Thyroid Stimulating Hormone 103 uIU/mL (0.47-4.68)
== END 2022-02-05 14:28 | disposition home or self-care (01) ==
PROVIDERS: Emergency Provider Physician Assistant Medical
DX: E86.0 Dehydration (principal); R11.2 Nausea with vomiting, unspecified; F11.93 Opioid use, unspecified with withdrawal
CPT/HCPCS: 36415; 80053; 84443; 96361; 96374; 96375; 99284; J1100; J2405

== ENCOUNTER 2022-04-21 10:38 | Emergency (ER) | payer OTHER, MEDICAID, SELFPAY ==
[2022-04-21 11:04] VITALS: BP 148/94; PULSE 76; RESP 15; TEMP 36.1; O2SAT 94; BMI 24.3
--- NOTE | 2022-04-21 11:58 | PC.NURSE ---
Called [facility] to verify pts dose. They confirmed that her dose is 150mg methadone PO
[2022-04-21] MEDS: METHADONE 10 MG TABLET 150 MG PO (12:04)
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
== END 2022-04-21 12:37 | disposition home or self-care (01) ==
PROVIDERS: Emergency Provider Student in an Organized Health Care Education/Training Program
DX: Z76.0 Encounter for issue of repeat prescription (principal)
CPT/HCPCS: 99283